=== PATIENT | female | born 1945 | race African-American/Black ===

== ENCOUNTER 2024-04-07 08:14 | Inpatient (IN) | payer MEDICARE, OTHER ==
[~2024-04-07] VITALS: Ht 160 cm; Wt 35.2 kg
[~2024-04-07 08:14] MED LIST: AMLO5TAB66 PO; CARV6.2534 PO; GABA-529 PO; HYDR50TA37 PO; LEVE-71 PO; PANT40TA54 PO; SEVE800T38 PO
[2024-04-07] MEDS: DEXTROSE 50%-WATER 25 GM/50 ML SYRINGE IVP ONE (09:00)
[2024-04-07 09:47] LABS: INR 1.2 (0.9-1.1); PROTHROMBIN TIME 12.5 SEC (9.4-11.6)
[2024-04-07 09:51] LABS: BILIRUBIN,TOTAL 0.5 mg/dL (0.1-1.0); CREATININE 3.32 mg/dL (0.60-1.30); POTASSIUM 3.9 mmol/L (3.5-5.1); TOTAL PROTEIN, SERUM 8.8 g/dL (6.4-8.2)
[2024-04-07 09:54] LABS: CALCIUM, TOTAL 14.1 mg/dL (8.8-10.5)
[2024-04-07 10:30] LABS: BASOPHILS % (AUTO) 0.9 % (0.0-2.0); EOSINOPHILS % (AUTO) 0.4 % (1.0-6.0); HEMATOCRIT 38.9 % (36-46); HEMOGLOBIN 12.4 g/dL (12.0-16.0); LYMPHOCYTES # (AUTO) 0.9 K/uL (1.0-4.8); LYMPHOCYTES % (AUTO) 19.4 % (22.0-44.0); MEAN CORPUSCULAR HEMOGLOBIN 30.1 pg (26.0-34.0); MEAN CORPUSCULAR VOLUME 94 fL (80-100); MONOCYTES # (AUTO) 0.3 K/uL (0.1-1.0); MONOCYTES % (AUTO) 6.1 % (2.0-9.0); NEUTROPHILS # (AUTO) 3.5 K/uL (1.8-7.7); NEUTROPHILS % (AUTO) 73.2 % (40.0-70.0); PLATELET COUNT (AUTO) 197 K/uL (150-450); RED BLOOD CELL COUNT(AUTO) 4.13 MIL/uL (4.00-5.20); RED CELL DISTRIBUTION WIDTH 14.6 % (11.5-14.5); WHITE BLOOD COUNT (AUTO) 4.7 K/uL (4.5-11.0)
[2024-04-07 10:33] LABS: TROPONIN I-HIGH SENSITIVITY 85 ng/L (<51)
[2024-04-07] MEDS: HydrALAZINE HCL 25 MG TABLET PO ONE (14:10)
[2024-04-07] MEDS: CARVEDILOL 3.125 MG TABLET PO ONE (14:10)
[2024-04-07] MEDS: AmLODIPine BESYLATE 5 MG TABLET PO ONE (14:10)
[2024-04-07] MEDS ORDERED: ONDANSETRON HCL 4 MG/2 ML VIAL IVP PRN (14:15)
[2024-04-07] MEDS ORDERED: MAGNESIUM HYDROXIDE SUSPENSION 30 ML UDCUP PO PRN (14:15)
[2024-04-07] MEDS ORDERED: ACETAMINOPHEN 325 MG TABLET PO PRN (14:15)
[2024-04-07] MEDS ORDERED: BISACODYL 10 MG RECTAL RECTAL SUPPOSITORY PR PRN (14:15)
[2024-04-07] MEDS ORDERED: MORPHINE SULFATE 2 MG/ML SYRINGE IVP PRN (14:15)
[2024-04-07] MEDS ORDERED: ZOLPIDEM TARTRATE 5 MG TABLET PO PRN (14:15)
[2024-04-07] MEDS ORDERED: HYDROCODONE/ACETAMINOPHEN 5-325 MG TABLET PO PRN (14:15)
[2024-04-07] MEDS: DEXTROSE 5%-0.45% SODIUM CHL 1,000 ML IV ONE (14:27)
[2024-04-07 15:43] VITALS: BP 138/64; PULSE 67; RESP 19; TEMP 97.8
[2024-04-07] MEDS: HydrALAZINE HCL 50 MG TABLET PO SCH (17:14)
[2024-04-07] MEDS: HEPARIN SODIUM,PORCINE 5,000 UNITS/ML VIAL SQ SCH (17:20)
[2024-04-07 18:55] LABS: GLUCOMETER DEV NAME(LOC) 5S.2D; GLUCOSE,POINT OF CARE 112 MG/DL (70-110)
[2024-04-07] MEDS: SEVELAMER CARBONATE 800 MG TABLET PO SCH (19:05)
[2024-04-07 19:49] VITALS: BP 126/56; PULSE 69; RESP 19; TEMP 97.5
[2024-04-07] MEDS: CARVEDILOL 6.25 MG TABLET PO SCH (21:00)
[2024-04-07] MEDS: LevETIRAcetam 500 MG TABLET PO SCH (21:20)
[2024-04-07] MEDS: DOCUSATE SODIUM 100 MG CAPSULE PO SCH (21:21)
[2024-04-07 22:36] LABS: GLUCOMETER DEV NAME(LOC) 5N.1D; GLUCOSE,POINT OF CARE 114 MG/DL (70-110)
[2024-04-07 23:44] VITALS: BP 126/54; PULSE 71; RESP 18; TEMP 98.2
[2024-04-08 03:25] VITALS: BP 133/55; PULSE 67; RESP 18; TEMP 97.6
[2024-04-08 07:00] LABS: GLUCOMETER DEV NAME(LOC) 5S.2D; GLUCOSE,POINT OF CARE 98 MG/DL (70-110)
[2024-04-08 07:59] VITALS: BP 188/77; PULSE 61; RESP 18; TEMP 98
[2024-04-08 08:22] LABS: CREATININE 3.87 mg/dL (0.60-1.30); POTASSIUM 4.3 mmol/L (3.5-5.1)
[2024-04-08 09:06] LABS: CALCIUM, TOTAL 14.6 mg/dL (8.8-10.5)
[2024-04-08] MEDS: AmLODIPine BESYLATE 5 MG TABLET PO SCH (09:42)
[2024-04-08] MEDS: PANTOPRAZOLE SODIUM 40 MG DR TABLET PO SCH (09:42)
[2024-04-08 11:35] LABS: BASOPHILS % (AUTO) 0.7 % (0.0-2.0); EOSINOPHILS % (AUTO) 0.6 % (1.0-6.0); HEMATOCRIT 37.4 % (36-46); HEMOGLOBIN 12.1 g/dL (12.0-16.0); LYMPHOCYTES # (AUTO) 1.3 K/uL (1.0-4.8); LYMPHOCYTES % (AUTO) 28.8 % (22.0-44.0); MEAN CORPUSCULAR HEMOGLOBIN 30.4 pg (26.0-34.0); MEAN CORPUSCULAR HGB CONC 32.3 G/dL (31.0-37.0); MEAN CORPUSCULAR VOLUME 94 fL (80-100); MONOCYTES # (AUTO) 0.4 K/uL (0.1-1.0); MONOCYTES % (AUTO) 8.5 % (2.0-9.0); NEUTROPHILS # (AUTO) 2.7 K/uL (1.8-7.7); NEUTROPHILS % (AUTO) 61.4 % (40.0-70.0); PLATELET COUNT (AUTO) 164 K/uL (150-450); RED BLOOD CELL COUNT(AUTO) 3.96 MIL/uL (4.00-5.20); RED CELL DISTRIBUTION WIDTH 14.1 % (11.5-14.5); WHITE BLOOD COUNT (AUTO) 4.5 K/uL (4.5-11.0)
[2024-04-08] MEDS ORDERED: SODIUM CHLORIDE 0.9% 100 ML ONE (12:35)
[2024-04-08] MEDS ORDERED: IOHEXOL 350 MG/ML 100 ML VIAL ONE (12:35)
[2024-04-08 14:09] VITALS: BP 138/56; PULSE 61; RESP 18
[2024-04-08 15:30] VITALS: BP 156/57; PULSE 60; RESP 18; TEMP 98.2
[2024-04-08 18:55] LABS: GLUCOMETER DEV NAME(LOC) 5S.2D; GLUCOSE,POINT OF CARE 100 MG/DL (70-110)
== END 2024-04-08 15:50 | disposition left against medical advice (07) | DRG 70 ==
LOC: EMS 08:14 → EDH 13:14 → 5S 15:32
PROVIDERS: ADMIT Internal Medicine; ATTEND Internal Medicine
DX: G93.41 Metabolic encephalopathy (principal); E43 Unspecified severe protein-calorie malnutrition; N18.6 End stage renal disease; I12.0 Hypertensive chronic kidney disease with stage 5 chronic kidney disease or end stage renal disease; E87.1 Hypo-osmolality and hyponatremia; Z68.1 Body mass index [BMI] 19.9 or less, adult; E16.2 Hypoglycemia, unspecified; E83.52 Hypercalcemia; K21.9 Gastro-esophageal reflux disease without esophagitis; G40.909 Epilepsy, unspecified, not intractable, without status epilepticus; Z99.2 Dependence on renal dialysis; Z74.01 Bed confinement status; Z79.899 Other long term (current) drug therapy
CPT/HCPCS: 71045; 80048; 80053; 82310; 82962; 83880; 84484; 85025; 85610; 85730; 87081; 93005; 99285; J1644; J7050; Q9967; 36415-L1; 36415-TC